=== PATIENT | female | born 1950 | race Caucasian/White ===

== ENCOUNTER → 2017-07-23 | Outpatient (CLI) | payer OTHER ==
[~2017-07-23] MED LIST: AMOX1TAB64 PO; DIGO125T PO; ENAL2.5T PO; ESOM20CA PO; HYDR-882 PO; PARO10TA3 PO; PROM25SU34 PO; RIVA10TA PO; hydrocodone PO
== END | disposition home or self-care (01) ==
LOC: CFH 14:28
PROVIDERS: ATTEND Internal Medicine Cardiovascular Disease
DX: I08.1 Rheumatic disorders of both mitral and tricuspid valves (principal); I10 Essential (primary) hypertension; I48.2 Chronic atrial fibrillation; Z79.01 Long term (current) use of anticoagulants
CPT/HCPCS: 93306

== ENCOUNTER → 2017-10-23 | Outpatient (CLI) | payer OTHER, MEDICARE | END | disposition home or self-care (01) | LOC: RAD 11:25 | PROVIDERS: ATTEND Thoracic Surgery (Cardiothoracic Vascular Surgery) | DX: I65.22 Occlusion and stenosis of left carotid artery (principal); I48.91 Unspecified atrial fibrillation; K44.9 Diaphragmatic hernia without obstruction or gangrene | CPT/HCPCS: 71250; 93880 ==

== ENCOUNTER → 2017-10-29 | Outpatient (CLI) | payer OTHER, MEDICARE ==
[~2017-10-29] MED LIST changes: +REGADENOSON 0.4 MG/5 ML SYRINGE ONE
== END | disposition home or self-care (01) ==
LOC: RAD 11:56
PROVIDERS: ATTEND Thoracic Surgery (Cardiothoracic Vascular Surgery)
DX: I48.91 Unspecified atrial fibrillation (principal)
CPT/HCPCS: 78452; 93017; A9502; J2785

== ENCOUNTER → 2018-01-30 | Outpatient (CLI) | payer OTHER, MEDICARE ==
[~2018-01-30] MED LIST changes: +ENAL10TA PO; +ESCI10TA PO; +PRAV40TA2 PO; -REGADENOSON 0.4 MG/5 ML SYRINGE ONE; +ROSU10TA PO; +VIT1TABL32 PO
[2018-01-30 14:50] LABS: BASOPHILS # (AUTO) 0.03 x10^3/uL (0-0.1); BASOPHILS % (AUTO) 0 % (0-1); EOSINOPHILS # (AUTO) 0.13 x10^3/uL (0-0.4); EOSINOPHILS % (AUTO) 1 % (1-7); LYMPHOCYTES # (AUTO) 3.72 x10^3/uL (1-3.4); LYMPHOCYTES % (AUTO) 32 % (22-44); MD NO; MEAN CORPUSCULAR HEMOGLOBIN 29.9 pg (27.0-34.8); MEAN CORPUSCULAR HGB CONC 33.2 g/dL (32.4-35.8); MEAN CORPUSCULAR VOLUME 89.9 fL (80-100); MEAN PLATELET VOLUME 9.1 fL (7.4-10.4); MONOCYTES % (AUTO) 4 % (2-9); NEUTROPHILS # (AUTO) 7.12 x10^3/uL (1.8-6.8); NEUTROPHILS % (AUTO) 62 % (42-75); PLATELET COUNT 286 x10^3/uL (130-400); RED BLOOD COUNT 4.89 x10^6/uL (3.82-5.3); RED CELL DISTRIBUTION WIDTH 14.5 % (9.6-15.2)
[2018-01-30 15:00] LABS: ALANINE AMINOTRANSFERASE 36 U/L (12-78); ALBUMIN 3.7 g/dL (3.4-5.0); ANION GAP 9 mmol/L (5-15); CALCIUM 9.5 mg/dL (8.5-10.1); CHLORIDE 103 mmol/L (98-107); CREATININE 0.85 mg/dL (0.55-1.02)
[2018-01-30 15:02] LABS: ALKALINE PHOSPHATASE 80 U/L (45-117); BILIRUBIN,TOTAL 0.5 mg/dL (0.2-1.0); TOTAL PROTEIN 7.4 g/dL (6.4-8.2)
== END | disposition home or self-care (01) ==
LOC: STAR 14:07
PROVIDERS: ATTEND Internal Medicine Cardiovascular Disease
DX: Z01.818 Encounter for other preprocedural examination (principal); Z87.891 Personal history of nicotine dependence
CPT/HCPCS: 36415; 71046; 80053; 85025

== ENCOUNTER 2018-02-04 06:29 | Observation (INO) | payer OTHER, MEDICARE ==
[~2018-02-04] VITALS: Ht 177.8 cm; Wt 97.3 kg
[~2018-02-04 06:29] MED LIST changes: +HYDR-3653 PO; -HYDR-882 PO
[2018-02-04] MEDS ORDERED: SODIUM CHLORIDE 0.9% 1,000 ML IV SCH (06:52)
[2018-02-04] MEDS ORDERED: PANT40TA5 PO (06:57)
[2018-02-04] MEDS ORDERED: MIDAZOLAM 1 MG/ML, 2ML ONE (07:19)
[2018-02-04] MEDS ORDERED: FENTANYL PF 250 MCG/5ML ONE (07:19)
[2018-02-04] MEDS ORDERED: ISOPROTERENOL 0.2MG/ML, 5ML ONE (07:39)
[2018-02-04] MEDS ORDERED: PROTAMINE SULFATE 10 MG/ML, 5ML ONE ×2 (07:40→09:47)
[2018-02-04] MEDS ORDERED: HEPARIN 1,000 UNITS/ML, 10ML ONE (07:40)
[2018-02-04] MEDS ORDERED: LIDOCAINE 1%, 50ML ONE (07:40)
[2018-02-04] MEDS ORDERED: ONDANSETRON 2MG/ML, 2ML ONE (08:49)
[2018-02-04] MEDS ORDERED: DEXAMETHASONE 4 MG/ML, 1ML ONE (08:49)
[2018-02-04] MEDS ORDERED: ROCURONIUM 10 MG/ML,10ML ONE (08:49)
[2018-02-04] MEDS ORDERED: SUCCINYLCHOLINE 20 MG/ML, 10ML ONE (08:49)
[2018-02-04] MEDS ORDERED: PROPOFOL 10 MG/ML, 20ML ONE ×2 (08:49)
[2018-02-04] MEDS ORDERED: ACETAMINOPHEN 325 MG TABLET PO PRN ×2 (10:00→10:30)
[2018-02-04] MEDS ORDERED: FENTANYL PF 100 MCG/2ML IV PRN (10:30)
[2018-02-04] MEDS ORDERED: MORPHINE SULFATE 4 MG/ML, 1ML IVPush PRN (10:30)
[2018-02-04] MEDS ORDERED: DIPHENHYDRAMINE 50 MG/ML, 1ML IVPush PRN (10:30)
[2018-02-04] MEDS ORDERED: MEPERIDINE/PF 25MG/0.5ML IVPush PRN (10:30)
[2018-02-04] MEDS ORDERED: MIDAZOLAM 1 MG/ML, 2ML IV PRN (10:30)
[2018-02-04] MEDS ORDERED: PROMETHAZINE 25 MG/ML, 1ML IV PRN (10:30)
[2018-02-04] MEDS ORDERED: LABETALOL 5MG/ML, 20ML IV PRN (10:30)
[2018-02-04] MEDS ORDERED: OXYcodone 5 MG/5 ML ORAL.SOL UDC PO PRN (10:30)
[2018-02-04] MEDS ORDERED: EPHEDRINE 50 MG/ML, 1ML IM PRN (10:30)
[2018-02-04] MEDS ORDERED: PROMETHAZINE 25 MG SUPP PR PRN (10:30)
[2018-02-04] MEDS ORDERED: ONDANSETRON ODT 8 MG PO PRN (10:30)
[2018-02-04] MEDS ORDERED: PROMETHAZINE 12.5 MG SUPP PR PRN (10:30)
[2018-02-04] MEDS ORDERED: EPHEDRINE 50 MG/ML, 1ML IVPush PRN (10:30)
[2018-02-04] MEDS ORDERED: RIVAROXABAN 20 MG TABLET PO SCH (11:00)
[2018-02-04] MEDS ORDERED: RIVAROXABAN 20 MG TABLET PO ONE (14:30)
[2018-02-04 16:07] VITALS: BP 115/80
[2018-02-04 19:39] VITALS: BP 105/71
[2018-02-04] MEDS ORDERED: ATORVASTATIN 20 MG TABLET PO SCH (21:00)
[2018-02-04 21:35] VITALS: BP 109/72
[2018-02-04] MEDS: ENALAPRIL 10 MG TABLET PO SCH (21:36)
[2018-02-05 01:47] VITALS: BP 105/64
[2018-02-05 07:19] VITALS: BP 116/75
[2018-02-05] MEDS ORDERED: ACET325T14 PO (07:59)
[2018-02-05] MEDS ORDERED: CITALOPRAM 20 MG TABLET PO SCH (09:00)
[2018-02-05] MEDS ORDERED: PANTOPROZOLE 40MG TABLET PO SCH (09:00)
[2018-02-05] MEDS ORDERED: RIVAROXABAN 10 MG TABLET PO SCH (09:00)
[2018-02-05] MEDS ORDERED: MULTIVITAMINS/MINERALS TABLET PO SCH (09:00)
[2018-02-05] MEDS: ENALAPRIL 10 MG TABLET PO SCH (09:20)
[2018-02-05 12:31] VITALS: BP 113/74
== END 2018-02-05 12:55 | disposition home or self-care (01) ==
LOC: CACL 06:29 → ORIP 09:58 → 5SO 16:01
PROVIDERS: ADMIT Internal Medicine Cardiovascular Disease; ATTEND Internal Medicine Cardiovascular Disease
DX: I48.91 Unspecified atrial fibrillation (principal); I48.92 Unspecified atrial flutter; I45.9 Conduction disorder, unspecified; Z79.899 Other long term (current) drug therapy
CPT/HCPCS: 85347; 93306; 93613; 93655; 93656; 93657; 93662; C1730; C1731; C1732; C1759; C1766; C1894; G0378; J0330; J1100; J1644; J2250; J2405; J2704; J2720; J3010; J3490

== ENCOUNTER 2018-12-29 08:06 | Outpatient (CLI) | payer MEDICARE | END 2018-12-29 23:59 | disposition home or self-care (01) | LOC: CFH 08:06 | DX: Z12.31 Encounter for screening mammogram for malignant neoplasm of breast (principal); N64.89 Other specified disorders of breast; M85.89 Other specified disorders of bone density and structure, multiple sites | CPT/HCPCS: 77063; 77067; 77080 ==

== ENCOUNTER → 2020-03-20 | Outpatient (CLI) | payer MEDICARE ==
[~2020-03-20] MED LIST changes: +ACET325T14 PO; -DIGO125T PO; +DIGO125T85 PO; -ENAL10TA PO; +ENAL10TA9 PO; -ENAL2.5T PO; +ENAL2.5T8 PO; +OMNIPAQUE 350 MG/ML, 150 ML BOTTLE ONE; +PANT40TA6 PO; -RIVA10TA PO; +RIVA10TA2 PO; -ROSU10TA PO; +ROSU10TA2 PO
[2020-03-20 16:09] LABS: CREATININE 0.79 mg/dL (0.55-1.02)
== END | disposition home or self-care (01) ==
LOC: RAD 15:12
PROVIDERS: ATTEND Nurse Practitioner Family
DX: K44.9 Diaphragmatic hernia without obstruction or gangrene (principal); K57.30 Diverticulosis of large intestine without perforation or abscess without bleeding; N32.89 Other specified disorders of bladder; N83.201 Unspecified ovarian cyst, right side; M51.37 Other intervertebral disc degeneration, lumbosacral region; R31.21 Asymptomatic microscopic hematuria
CPT/HCPCS: 36415; 74178; 82565; Q9967

== ENCOUNTER → 2020-10-09 | Outpatient (CLI) | payer MEDICARE ==
[~2020-10-09] MED LIST changes: -ESCI10TA PO; +ESCI10TA97 PO; -OMNIPAQUE 350 MG/ML, 150 ML BOTTLE ONE
== END | disposition home or self-care (01) ==
LOC: CFH 12:38
PROVIDERS: ATTEND Nurse Practitioner Family
DX: Z12.31 Encounter for screening mammogram for malignant neoplasm of breast (principal)
CPT/HCPCS: 77063; 77067